=== PATIENT | male | born 1930 | race Caucasian/White ===

== ENCOUNTER 2019-11-20 11:14 | Emergency (ER) | payer MEDICARE, OTHER ==
[2019-11-20] MEDS ORDERED: Sodium Chloride 0.9% 1,000 ML IV ONE (11:15)
[2019-11-20] MEDS ORDERED: Sodium Chloride 0.9% 10 ML Syringe FLUSH PRN (11:30)
--- NOTE | 2019-11-20 11:56 | CR ---
Chest: Portable supine view of the chest was obtained. Comparison: Prior chest x-ray of 12/16/17. Endotracheal tube is seen lying slightly below the inferior level of clavicles and above the annette. Large left-sided pneumothorax is noted. Right lung is clear. Heart size slightly enlarged but accentuated from portable technique. Impression: 1. Large left-sided pneumothorax. I believe this will require a chest tube for evacuation. Please correlate. 2. Satisfactory position of endotracheal tube. Diagnostic code #5 This report was dictated in MDT
--- NOTE | 2019-11-20 11:58 | EDM.PDOC ---
ED HPI GENERAL MEDICAL PROBLEM - General Chief Complaint: CPR in Progress Stated Complaint: WILBERT KULKARNI FROM CLINIC TO ER Time Seen by Provider: 11/20/19 11:31 Source of Information: Reports: Patient, RN Notes Reviewed - History of Present Illness INITIAL COMMENTS - FREE TEXT/NARRATIVE: 89 yr old male presented to the [facility] clinic a short time ago with dyspnea, chest pain that according to brother in law just started this morning or perhaps sometime during the night. His brother in law states he called for help this morning. He was very short of breath bringing him to the clinic and also having chest pain. He is became totally unresponsive on arrival to the clinic east entrance. It became apparent he was not breathing, did not have a pulse, Wilbert Kulkarni called at around or just before 11AM. Upon my arrival CPR in progress. - Related Data Allergies Allergy/AdvReac Type Severity Reaction Status Date / Time influenza virus vaccine, Allergy Cannot Verified 12/16/17 12:10 specific Remember [influenza virus vacc,specific] propoxyphene HCl Allergy Cannot Verified 12/16/17 12:10 [From Mariano] Remember Home Meds: Home Meds Acetaminophen [Tylenol Arthritis Pain] 1 tab PO DAILY 04/09/14 [History] Lisinopril 10 mg PO DAILY 04/09/14 [History] Nitroglycerin [Nitrostat] 0.4 mg SL ASDIRECTED PRN 04/09/14 [History] Past Medical History Cardiovascular History: Reports: Angina (Unstable angina.), CAD, Hypertension Gastrointestinal History: Reports: Other (See Below) (Dysphagia with esophageal stricture. Gastroesophageal reflux disease) Other Gastrointestinal History: esophageal strictures Genitourinary History: Reports: BPH Musculoskeletal History: Reports: Arthritis (Mostly knees hips lower back and neck.) Endocrine/Metabolic History: Reports: Other (See Below) Social & Family History - Caffeine Use Caffeine Use: Reports: Coffee - Living Situation & Occupation Living situation: Reports: Single Occupation: Retired ED ROS GENERAL - Review of Systems Review Of Systems: Unable To Obtain Reason Not Obtained: Cardiac arrest ED EXAM, GENERAL - Physical Exam Exam: See Below General Appearance: Other (CPR in progress, elderly male, no medical information known) Head: Atraumatic Neck: Other (No JVD) Respiratory/Chest: Other (Full breath sounds bilat with bagged ventilations) Cardiovascular: Other (Good femoral pulse with CPR) GI/Abdominal: No: Distended (Male) Exam: Other (not distended) Extremities: No: Pedal Edema Neurological: Unresponsive Skin Exam: Pallor Course - Vital Signs Last Recorded V/S: Last Vital Signs Temp 97.1 F 11/20/19 11:30 Pulse 83 11/20/19 13:30 Resp 25 H 11/20/19 12:00 BP 63/43 L 11/20/19 13:30 Pulse Ox 15 L 11/20/19 13:30 - Orders/Labs/Meds Orders: Active Orders 24 hr Category Date Time Status Peripheral IV Insertion Adult [OM.PC] Stat Oth 11/20/19 11:29 Ordered Labs: Laboratory Tests 11/20/19 11/20/19 11/20/19 Range/Units 11:30 11:30 11:30 WBC 13.92 H (4.23-9.07) K/mm3 RBC 3.87 L (4.63-6.08) M/mm3 Hgb 10.6 L D (13.7-17.5) gm/dl Hct 34.6 L (40.1-51.0) % MCV 89.4 D (79.0-92.2) fl MCH 27.4 (25.7-32.2) pg MCHC 30.6 L (32.2-35.5) g/dl RDW Std Deviation 47.0 H (35.1-43.9) fL Plt Count 166 D (163-337) K/mm3 MPV 11.3 (9.4-12.3) fl Neut % (Auto) 78.7 H (34.0-67.9) % Lymph % (Auto) 12.1 L (21.8-53.1) % Edwards % (Auto) 8.5 (5.3-12.2) % Eos % (Auto) 0 L (0.8-7.0) Baso % (Auto) 0.1 (0.1-1.2) % Neut # (Auto) 10.97 H (1.78-5.38) K/mm3 Lymph # (Auto) 1.68 (1.32-3.57) K/mm3 Edwards # (Auto) 1.18 H (0.30-0.82) K/mm3 Eos # (Auto) 0.00 L (0.04-0.54) K/mm3 Baso # (Auto) 0.01 (0.01-0.08) K/mm3 PT (9.7-11.7) SECONDS INR D-Dimer, Quantitative (0.19-0.50) mg/L Sodium 142 D (136-145) mEq/L Potassium 2.3 L* (3.5-5.1) mEq/L Chloride 98 (98-107) mEq/L Carbon Dioxide 23 (21-32) mEq/L Anion Gap 23.3 H (5-15) BUN 17 (7-18) mg/dL Creatinine 2.0 H (0.7-1.3) mg/dL Est Cr Clr Drug Dosing TNP Estimated GFR (MDRD) 32 (>60) mL/min BUN/Creatinine Ratio 8.5 L (14-18) Glucose 214 H (83-115) mg/dL Calcium 8.4 L (8.5-10.1) mg/dL Ferritin (26-388) ng/ml Total Bilirubin 1.0 (0.2-1.0) mg/dL AST 36 (15-37) U/L ALT 18 (16-63) U/L Alkaline Phosphatase 95 (46-116) U/L Lactate Dehydrogenase 297 H (85-227) U/L Troponin I 0.852 H* (0.00-0.056) ng/mL C-Reactive Protein 14.8 H* (<1.0) mg/dL NT-Pro-B Natriuret Pep (0-450) pg/mL Total Protein 6.2 L (6.4-8.2) g/dl Albumin 2.4 L (3.4-5.0) g/dl Globulin 3.8 gm/dL Albumin/Globulin Ratio 0.6 L (1-2) SARS-CoV-2 RNA (JULIETA) Negative (NEGATIVE) 11/20/19 11/20/19 11/20/19 Range/Units 11:30 11:30 11:30 WBC (4.23-9.07) K/mm3 RBC (4.63-6.08) M/mm3 Hgb (13.7-17.5) gm/dl Hct (40.1-51.0) % MCV (79.0-92.2) fl MCH (25.7-32.2) pg MCHC (32.2-35.5) g/dl RDW Std Deviation (35.1-43.9) fL Plt Count (163-337) K/mm3 MPV (9.4-12.3) fl Neut % (Auto) (34.0-67.9) % Lymph % (Auto) (21.8-53.1) % Edwards % (Auto) (5.3-12.2) % Eos % (Auto) (0.8-7.0) Baso % (Auto) (0.1-1.2) % Neut # (Auto) (1.78-5.38) K/mm3 Lymph # (Auto) (1.32-3.57) K/mm3 Edwards # (Auto) (0.30-0.82) K/mm3 Eos # (Auto) (0.04-0.54) K/mm3 Baso # (Auto) (0.01-0.08) K/mm3 PT 13.4 H (9.7-11.7) SECONDS INR 1.26 D-Dimer, Quantitative 7.65 H (0.19-0.50) mg/L Sodium (136-145) mEq/L Potassium (3.5-5.1) mEq/L Chloride (98-107) mEq/L Carbon Dioxide (21-32) mEq/L Anion Gap (5-15) BUN (7-18) mg/dL Creatinine (0.7-1.3) mg/dL Est Cr Clr Drug Dosing Estimated GFR (MDRD) (>60) mL/min BUN/Creatinine Ratio (14-18) Glucose (83-115) mg/dL Calcium (8.5-10.1) mg/dL Ferritin 282 (26-388) ng/ml Total Bilirubin (0.2-1.0) mg/dL AST (15-37) U/L ALT (16-63) U/L Alkaline Phosphatase (46-116) U/L Lactate Dehydrogenase (85-227) U/L Troponin I (0.00-0.056) ng/mL C-Reactive Protein (<1.0) mg/dL NT-Pro-B Natriuret Pep (0-450) pg/mL Total Protein (6.4-8.2) g/dl Albumin (3.4-5.0) g/dl Globulin gm/dL Albumin/Globulin Ratio (1-2) SARS-CoV-2 RNA (JULIETA) (NEGATIVE) 11/20/19 Range/Units 11:30 WBC (4.23-9.07) K/mm3 RBC (4.63-6.08) M/mm3 Hgb (13.7-17.5) gm/dl Hct (40.1-51.0) % MCV (79.0-92.2) fl MCH (25.7-32.2) pg MCHC (32.2-35.5) g/dl RDW Std Deviation (35.1-43.9) fL Plt Count (163-337) K/mm3 MPV (9.4-12.3) fl Neut % (Auto) (34.0-67.9) % Lymph % (Auto) (21.8-53.1) % Edwards % (Auto) (5.3-12.2) % Eos % (Auto) (0.8-7.0) Baso % (Auto) (0.1-1.2) % Neut # (Auto) (1.78-5.38) K/mm3 Lymph # (Auto) (1.32-3.57) K/mm3 Edwards # (Auto) (0.30-0.82) K/mm3 Eos # (Auto) (0.04-0.54) K/mm3 Baso # (Auto) (0.01-0.08) K/mm3 PT (9.7-11.7) SECONDS INR D-Dimer, Quantitative (0.19-0.50) mg/L Sodium (136-145) mEq/L Potassium (3.5-5.1) mEq/L Chloride (98-107) mEq/L Carbon Dioxide (21-32) mEq/L Anion Gap (5-15) BUN (7-18) mg/dL Creatinine (0.7-1.3) mg/dL Est Cr Clr Drug Dosing Estimated GFR (MDRD) (>60) mL/min BUN/Creatinine Ratio (14-18) Glucose (83-115) mg/dL Calcium (8.5-10.1) mg/dL Ferritin (26-388) ng/ml Total Bilirubin (0.2-1.0) mg/dL AST (15-37) U/L ALT (16-63) U/L Alkaline Phosphatase (46-116) U/L Lactate Dehydrogenase (85-227) U/L Troponin I (0.00-0.056) ng/mL C-Reactive Protein (<1.0) mg/dL NT-Pro-B Natriuret Pep 68861 H (0-450) pg/mL Total Protein (6.4-8.2) g/dl Albumin (3.4-5.0) g/dl Globulin gm/dL Albumin/Globulin Ratio (1-2) SARS-CoV-2 RNA (JULIETA) (NEGATIVE) Meds: Medications Discontinued Medications Generic Name Dose Route Start Last Admin Trade Name Freq PRN Reason Stop Dose Admin Fentanyl Confirm 11/20/19 12:03 11/20/19 12:28 Sublimaze Administered 11/20/19 12:04 Not Given Dose 100 mcg .ROUTE .STK-MED ONE Fentanyl 50 mcg 11/20/19 12:05 11/20/19 12:05 Sublimaze IVPUSH 11/20/19 12:06 50 mcg ONETIME ONE Administration Potassium Chloride 10 meq/ 100 mls @ 100 mls/hr 11/20/19 12:30 Premix IV 11/20/19 14:29 Q1H KEO Sodium Chloride 10 ml 11/20/19 11:30 11/20/19 12:30 Saline Flush FLUSH 10 ml ASDIRECTED PRN Administration Keep Vein Open - Re-Assessments/Exams Free Text/Narrative Re-Assessment/Exam: 11/20/19 13:30. Wilbert kulkarni was called over near the [facility] clinic entrance. CPR was in progress when I arrived to help provide care. He was on the floor, we got him up on a cot and moved him over to ED as fast as safely possible with continued CPR. Rythm check prior to transporting showed a few agonal narrow complex beat with no pulse. On arrival to ED he was again in EMD with no shockable rythm and no pulse. IV access was obtained, he was given 2 doses of epinephrine, 2 minutes apart, one dose of 50 meq bicarb IV. He was intubated. At about 11:12, after being down for about 12 or more minutes and about 8 to 10 minutes of CPR rythm check showed a narrow complex rythm with a good strong femoral pulse. At that time amiodoarone 150 mg IV was ordered to be followed by a mg/min drip. Unfortunately CXR showed a large farirly complete L pneumothorax. Dr Sy called to put in chest tube. He had a good BP of about 120 at that time, no mediastinal shift, no clinical evidence for tension pnemo. at that time. Medical Hx was obtained from his sister and sister's present in family consult room. They state he had a cardiac stent placed about 15 yrs ago, has COPD, continues to smoke. Lives alone, falls frequently, should probably be in a NH but so far has been resistant to making that move. Labs came back as documented. D Dimer, CRP, Trop. LDH BNP all elevated, 1 hr covid came back neg. EKG showed A fib. rate 119,q waves anterior, occas. PVC's. I did check with both Hospitals in [place] for transfer, both on diversion. I than was in the process of making arrangements for transfer to [facility] when his sister and brother in law stated to nursing staff and than to myself that they absolutely do not want him transferred to [facility]. They would like to have him changed to comfort care realizing his prognosis for hospital discharge and return to quality life extremely unlikely. Dr Sy had come over to put in a chest tube but we called that off. At about 12:45 we went to comfort care measures. Endotracheal tube removed. IV amiodarone stopped. Sister and brother in law were allowed at bedside. His heart rate and BP gradually declined as did his O2 sats. Time of 13:50. Departure - Departure Time of Disposition: 14:38 Disposition: 20 Clinical Impression: Cardiac arrest Referrals: Raymond Walters MD [Primary Care Provider] - - My Orders Last 24 Hours: My Active Orders 11/20/19 11:29 Peripheral IV Insertion Adult [OM.PC] Stat - Assessment/Plan Last 24 Hours: My Active Orders 11/20/19 11:29 Peripheral IV Insertion Adult [OM.PC] Stat
[2019-11-20] MEDS ORDERED: DEXTROSE IV ONE (12:00)
[2019-11-20] MEDS ORDERED: Sodium Bicarbonate 8.4% 50 MEQ/50 ML Syringe ONE (12:00)
[2019-11-20] MEDS ORDERED: Amiodarone 360 MG In Dextrose 200 ML IV SCH (12:00)
[2019-11-20] MEDS ORDERED: EPINEPHrine 1:10,000 1 MG/10 ML Syringe ONE (12:00)
[2019-11-20] MEDS ORDERED: Midazolam 1 MG/ML 5 ML SDV ONE (12:00)
[2019-11-20] MEDS ORDERED: AMIODARONE IV ONE (12:00)
[2019-11-20] MEDS ORDERED: fentaNYL 100 MCG/2 ML SDV ONE (12:03)
[2019-11-20] MEDS ORDERED: fentaNYL 100 MCG/2 ML SDV IVPUSH ONE (12:05)
[2019-11-20] MEDS ORDERED: Potassium Chloride 10 MEQ in Premix Bag 1 BAG IV SCH (12:30)
[2019-11-20 17:16] VITALS: BP 63/43; PULSE 83
== END 2019-11-20 14:53 | disposition expired ==
LOC: JD.ED 11:14
DX: I46.9 Cardiac arrest, cause unspecified (principal); I10 Essential (primary) hypertension; I25.10 Atherosclerotic heart disease of native coronary artery without angina pectoris; Z20.828 Contact with and (suspected) exposure to other viral communicable diseases; Z88.7 Allergy status to serum and vaccine; Z88.8 Allergy status to other drugs, medicaments and biological substances; Z79.899 Other long term (current) drug therapy
CPT/HCPCS: 32551; 36415; 71045; 71045-26; 80053; 82728; 83615; 83880; 84484; 85025; 85379; 85610; 86140; 92950; 93005; 96365; 96368; 96375; 96376; 99285-25; J0171; J0282; J2250; J3010; J3480; J7030; J7060; U0002